=== PATIENT | female | born 1995 | race Hispanic/Latino ===

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

== ENCOUNTER 2017-06-15 15:51 | Emergency (ER) | payer MEDICAID ==
[2017-06-15 15:51] VITALS: BMI 29.3
--- NOTE | 2017-06-15 16:59 | C.PDOC ---
History Of Present Illness Pt c/o painless vaginal bleeding. Time Seen by Provider: 06/15/17 16:21 Chief Complaint (Nursing): Female Genitourinary History Per: Patient Onset/Duration Of Symptoms: Hrs (this morning) Current Symptoms Are (Timing): Still Present Severity: Mild Quality Of Discomfort: denies: "Pain" Additional History Per: Prior Records Abnormal Vaginal Bleeding: Yes Last Menstral Period: 8 weeks Past Medical History Reviewed: Historical Data, Nursing Documentation, Vital Signs Vital Signs: Last Vital Signs Temp 97.4 F L 06/15/17 15:56 Pulse 92 H 06/15/17 15:56 Resp 18 06/15/17 15:56 BP 137/84 06/15/17 15:56 Pulse Ox 100 06/15/17 15:56 - Medical History PMH: No Chronic Diseases Surgical History: - [facility] Procedures LOW CERVICAL (09/04/14) 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 Constitutional: Negative for: Fever Cardiovascular: Negative for: Chest Pain, Light Headedness Respiratory: Negative for: Shortness of Breath Gastrointestinal: Negative for: Abdominal Pain Genitourinary: Positive for: Vaginal Bleeding. Negative for: Dysuria, Pelvic Pain Musculoskeletal: Negative for: Neck Pain, Back Pain Skin: Negative for: Rash Neurological: Negative for: Weakness, Numbness Physical Exam - Physical Exam Appears: Non-toxic, No Acute Distress Skin: Normal Color, Warm, Dry, No Rash Head: Atraumatic, Normacephalic Eye(s): bilateral: Normal Inspection, PERRL, EOMI Neck: Normal ROM, Supple Cardiovascular: Rhythm Regular Respiratory: Normal Breath Sounds, No Accessory Muscle Use Gastrointestinal/Abdominal: Soft, No Tenderness Back: No CVA Tenderness Extremity: Normal ROM Neurological/Psych: Oriented x3, Normal Motor, Normal Sensation ED Course And Treatment O2 Sat by Pulse Oximetry: 100 Pulse Ox Interpretation: Normal - CT Scan/US Limited bedside TA Pelvic US Other Rad Studies (CT/US): U/S Performed By Ar CT/US Interpretation: Live IUP (FHR 150bpm). No FF. Disposition Counseled Patient/Family Regarding: Studies Performed, Diagnosis, Need For Followup - Disposition Disposition: HOME/ ROUTINE Disposition Time: 17:00 Condition: STABLE Additional Instructions: Pelvic rest. Follow up with your Business Intelligence Analyst doctor. Return to the ER if you develop pain, dizziness, heavy bleeding, worsening of symptoms or if you have any other concerns. Instructions: Threatened Miscarriage (ED) - Clinical Impression Clinical Impression: Threatened
[2017-06-15 17:24] VITALS: BP 129/79; PULSE 82; RESP 16; TEMP 98.3; O2SAT 99
== END 2017-06-15 17:20 | disposition home or self-care (01) ==
LOC: C.ER 15:51
DX: O20.0 Threatened abortion (principal); Z3A.08 8 weeks gestation of pregnancy

== ENCOUNTER 2017-07-12 15:14 | Emergency (ER) | payer MEDICAID ==
[2017-07-12 15:29] VITALS: RESP 18
[2017-07-12 16:05] VITALS: BMI 29.7
[2017-07-12] MEDS ORDERED: Dextrose 5%/0.45% NS 1,000 ML IV SCH (16:30)
[2017-07-12] MEDS ORDERED: Acetaminophen 160 mg/5 ml elixir (120 ml) ONE (16:53)
[2017-07-12] MEDS ORDERED: Dextrose 5%/0.45% NS 1,000 ML IV ONE (17:01)
[2017-07-12 17:10] LABS: HCG,QUALITATIVE URINE POSITIVE (NEGATIVE)
--- NOTE | 2017-07-12 17:13 | C.PDOC ---
History Of Present Illness 21 year old female who is 12 weeks presents to the ED for evaluation of headache, nausea, vomit, not tolerating PO. Patient states she ran out of Zofran and is requesting more. Patient denies abdominal pain, vaginal bleeding, urinary symptoms. Time Seen by Provider: 07/12/17 16:05 Chief Complaint (Nursing): Abdominal Pain History Per: Patient History/Exam Limitations: no limitations Onset/Duration Of Symptoms: Days Current Symptoms Are (Timing): Still Present Severity: None Radiation Of Pain To:: None Quality Of Discomfort: "Pain" Associated Symptoms: Nausea, Vomiting Alleviating Factors: None Recent travel outside of the [place]: No Additional History Per: Patient Abnormal Vaginal Bleeding: No Past Medical History Reviewed: Historical Data, Nursing Documentation, Vital Signs Vital Signs: Last Vital Signs Temp 98.2 F 07/12/17 18:55 Pulse 84 07/12/17 18:55 Resp 18 07/12/17 18:55 BP 117/76 07/12/17 18:55 Pulse Ox 100 07/12/17 19:08 - Medical History PMH: No Chronic Diseases Denies: Chronic Kidney Disease Surgical History: - [facility] Procedures LOW CERVICAL (09/04/14) MEDICAL INDUCTION LABOR (09/04/14) Family History: States: Unknown Family Hx - Social History Hx Tobacco Use: No Hx Alcohol Use: No Hx Substance Use: No - Immunization History Hx Tetanus Toxoid Vaccination: No Hx Influenza Vaccination: No Hx Pneumococcal Vaccination: No Review Of Systems Constitutional: Negative for: Fever, Chills Cardiovascular: Negative for: Chest Pain, Palpitations Respiratory: Negative for: Cough, Shortness of Breath Gastrointestinal: Positive for: Nausea, Vomiting Genitourinary: Negative for: Vaginal Discharge, Vaginal Bleeding Musculoskeletal: Negative for: Back Pain Skin: Negative for: Rash Neurological: Positive for: Headache Physical Exam - Physical Exam Appears: Non-toxic, No Acute Distress Skin: Normal Color, Warm, Dry Head: Atraumatic, Normacephalic Eye(s): bilateral: Normal Inspection Nose: No Discharge, No Deformity Oral Mucosa: Moist Neck: Normal ROM, Supple Chest: Symmetrical Cardiovascular: Rhythm Regular, No Murmur Respiratory: Normal Breath Sounds, No Rales, No Rhonchi, No Wheezing Gastrointestinal/Abdominal: Soft, No Tenderness, No Guarding, No Rebound Extremity: Normal ROM Neurological/Psych: Oriented x3, Normal Speech, Normal Cognition Gait: Steady ED Course And Treatment - Laboratory Results Result Diagrams: 07/12/17 17:11 07/12/17 17:11 O2 Sat by Pulse Oximetry: 100 (On RA) Pulse Ox Interpretation: Normal Medical Decision Making Medical Decision Making: Plan: * Labs * IV fluids * Zofran 4 mg PO * UA 7 pm pt tolerating po fluids, will d/c home with macrobid and zofran. f/u ob/ pattern grader Disposition Counseled Patient/Family Regarding: Diagnosis, Need For Followup, Rx Given - Disposition Referrals: [facility] [Outside] Disposition: HOME/ ROUTINE Disposition Time: 19:05 Condition: IMPROVED Additional Instructions: Drink fluids in small amounts at a time. FInd an test and turn up technician as soon as possible for pre- care. Take antibiotics as prescribed Take zofran if needed for severe nausea. . Prescriptions: Nitrofurantoin Macrocrystals [Macrobid] 100 mg PO BID #14 cap Ondansetron ODT [Zofran ODT] 4 mg PO TID #6 odt Instructions: Nausea and Vomiting of (DC) Forms: [facility] (Greek), General Discharge Instructions - Clinical Impression Clinical Impression: Vomiting of , unspecified, UTI (urinary tract infection) - PA / CANE FLUME WATCHMAN / Resident Statement MD/DO has reviewed & agrees with the documentation as recorded. - Scribe Statement The provider has reviewed the documentation as recorded by the Scribe Andry Franz All medical record entries made by the Scribe were at my direction and personally dictated by me. I have reviewed the chart and agree that the record accurately reflects my personal performance of the history, physical exam, medical decision making, and the department course for this patient. I have also personally directed, reviewed, and agree with the discharge instructions and disposition.
[2017-07-12 17:18] LABS: BASO % 0.4 % (0.0-2.0); EOS # 0.1 K/uL (0.0-0.7); EOS % 1.5 % (0.0-4.0); HEMOGLOBIN 12.5 g/dL (11.0-16.0); LYMPH % 23.6 % (20.0-40.0); MEAN CORPUSCULAR HEMOGLOBIN 30.9 pg (27.0-31.0); MEAN CORPUSCULAR HGB CONC 34.7 g/dL (33.0-37.0); MEAN PLATELET VOLUME 9.2 fL (7.2-11.7); MONO # 0.7 K/uL (0.0-0.8); MONO % 8.3 % (0.0-10.0); NEUT # 5.6 K/uL (1.8-7.0); NEUT % 66.2 % (50.0-75.0); RBC 4.06 Mil/uL (3.80-5.20); RED CELL DISTRIBUTION WIDTH 12.7 % (11.5-14.5); WHITE BLOOD COUNT 8.4 K/uL (4.8-10.8)
[2017-07-12 17:18] LABS: SQUAMOUS EPITHIAL 46 /hpf (0-5); URINE BACTERIA MOD (<OCC); URINE BILIRUBIN NEGATIVE (NEGATIVE); URINE BLOOD NEGATIVE (NEGATIVE); URINE CLARITY Hazy (Clear); URINE GLUCOSE (UA) NORMAL (Normal); URINE LEUKOCYTE ESTERASE 3+ Leu/uL (Negative); URINE PROTEIN NEGATIVE (NEGATIVE); URINE UROBILINOGEN NORMAL mg/dL (0.2-1.0)
[2017-07-12 17:20] LABS: URINE COLOR YELLOW (YELLOW)
[2017-07-12 17:30] LABS: ALB/GLOB RATIO 1.3 (1.0-2.1); ALBUMIN 4.2 g/dL (3.5-5.0); ALT/SGPT 48 U/L (9-52); AST/SGOT 26 U/L (14-36); BLOOD UREA NITROGEN 8 mg/dL (7-17); CALCIUM 9.9 mg/dl (8.6-10.4); GFR AFRICAN-AMERICAN > 60; GFR NON-AFRICAN AMERICAN > 60
[2017-07-12 18:56] VITALS: BP 117/76; PULSE 84; TEMP 98.2
[2017-07-12 19:07] VITALS: O2SAT 100
== END 2017-07-12 19:15 | disposition home or self-care (01) ==
LOC: C.ER 15:14
DX: O21.9 Vomiting of pregnancy, unspecified (principal); O23.41 Unspecified infection of urinary tract in pregnancy, first trimester; Z3A.12 12 weeks gestation of pregnancy
CPT/HCPCS: 80053; 81001; 82009; 84703; 85025; 96361; 96374; 99285; J2405; J7042

== ENCOUNTER 2017-11-11 17:54 | Emergency (ER) | payer MEDICAID ==
[2017-11-11 18:22] VITALS: BMI 32.8
[2017-11-11] MEDS ORDERED: Lactated Ringer's 1,000 ML IV ONE (18:46)
--- NOTE | 2017-11-11 19:41 | OBHP ---
Datetime: 11/11/2017 19:28 IP Adm Impression: , intrauterine IP Chief Complaint Other: abdominal pain in preg IP Admit Plan: Observation/Evaluation; Discharge home Admit Comment, IP Provider: 22 yo @ 29.2wks w/ c/o sharp abd pain x5 days aggravated by supi ne position. denies coitus x2mo's. denies srom. good fm pmhx: denies pshx: cdx1 nkda medic: pnv shx: denies tobacco, illicit drug or etoh i: 29.2wks Increased pulse sytolic bp 130's p: ua, cbc, cmp monitor bps Pelvic Type - PN: Adequate Extremities - PN: Normal Abdomen - PN: Normal Lungs - PN: Normal Heart - PN: Normal Neurologic - PN: Normal HEENT - PN: Normal General - PN: Normal FHR - Baseline A Provider: 150 Membranes, Provider: Intact Contraction Comments Provider: irritability Comments, ACOG Physical Exam: SSE: no vag d/c; no blood closed EGA AdmitDate IP: 29.2 Vital Signs Provider: Within Normal Limits IP Chief Complaint: Other NICHD Variability Prov Fetus A: Moderate 6-25bpm NICHD Accel Fetus A IP Provider: 10X10 FHR Category Provider Fetus A: Category I NICHD Decel Fetus A IP Provider: None Dilatation, Provider: 0 Effacement, Provider: 0 Station, Provider: floating Genitourinary Exam: Normal
[2017-11-11 19:54] LABS: BASO % 0.2 % (0.0-2.0); EOS # 0.1 K/uL (0.0-0.7); EOS % 0.4 % (0.0-4.0); HEMOGLOBIN 10.7 g/dL (11.0-16.0); LYMPH # 2.1 K/uL (1.0-4.3); LYMPH % 17.5 % (20.0-40.0); MEAN CORPUSCULAR HEMOGLOBIN 30.6 pg (27.0-31.0); MEAN PLATELET VOLUME 9.5 fL (7.2-11.7); MONO # 0.9 K/uL (0.0-0.8); MONO % 7.4 % (0.0-10.0); NEUT # 8.9 K/uL (1.8-7.0); NEUT % 74.5 % (50.0-75.0); RBC 3.49 Mil/uL (3.80-5.20); RED CELL DISTRIBUTION WIDTH 12.8 % (11.5-14.5)
[2017-11-11 19:57] LABS: SQUAMOUS EPITHIAL 2 /hpf (0-5); URINE BILIRUBIN NEGATIVE (NEGATIVE); URINE BLOOD NEGATIVE (NEGATIVE); URINE CLARITY Clear (Clear); URINE COLOR Yellow (YELLOW); URINE GLUCOSE (UA) NORMAL (Normal); URINE LEUKOCYTE ESTERASE NEG Leu/uL (Negative); URINE PROTEIN NEGATIVE (NEGATIVE)
[2017-11-11 20:06] LABS: ALB/GLOB RATIO 1.3 (1.0-2.1); ALBUMIN 3.6 g/dL (3.5-5.0); ALT/SGPT 40 U/L (9-52); AST/SGOT 16 U/L (14-36); BLOOD UREA NITROGEN 9 mg/dL (7-17); CALCIUM 9.2 mg/dl (8.6-10.4); GFR AFRICAN-AMERICAN > 60; GFR NON-AFRICAN AMERICAN > 60
[2017-11-12 01:17] VITALS: BP 135/78; PULSE 98; RESP 20; TEMP 98; O2SAT 98
== END 2017-11-11 20:50 | disposition home or self-care (01) ==
LOC: C.EROB 17:54
DX: O26.893 Other specified pregnancy related conditions, third trimester (principal); R10.9 Unspecified abdominal pain; Z3A.29 29 weeks gestation of pregnancy
CPT/HCPCS: 80053; 81001; 83615; 85025; 87086; 99283; J7120

== ENCOUNTER 2018-08-26 12:41 | Emergency (ER) | payer MEDICAID, OTHER ==
[2018-08-26 12:50] VITALS: PULSE 75; TEMP 99.6; O2SAT 98; BMI 34.1
--- NOTE | 2018-08-26 13:19 | C.PDOC ---
History Of Present Illness 23 y/o female presents to the ED complaining of a sore throat and earache for the past 2 days. Associated with a subjective fever and body aches. Patient has not tried any OTC medication. Denies any nausea, vomiting, diarrhea, coughing, or SOB. Time Seen by Provider: 08/26/18 12:50 Chief Complaint (Nursing): ENT Problem History Per: Patient History/Exam Limitations: None Onset/Duration Of Symptoms: Days (x 3) Current Symptoms Are (Timing): Still Present Past Medical History Reviewed: Historical Data, Nursing Documentation, Vital Signs Vital Signs: Last Vital Signs Temp 99.6 F 08/26/18 12:47 Pulse 75 08/26/18 12:47 Resp 107 H 08/26/18 12:47 BP Pulse Ox 98 08/26/18 12:47 - Medical History PMH: Denies: Depression, Diabetes, HTN, Chronic Kidney Disease Surgical History: - [facility] Procedures LOW CERVICAL (09/04/14) MEDICAL INDUCTION LABOR (09/04/14) MONITORING OF POC, CARDIAC RATE, BENEFITS DIRECTOR APPROACH (12/01/17) Family History: States: Unknown Family Hx - Social History Hx Tobacco Use: No Hx Alcohol Use: No Hx Substance Use: No - Immunization History Hx Tetanus Toxoid Vaccination: No Hx Influenza Vaccination: No Hx Pneumococcal Vaccination: No Review Of Systems Constitutional: Positive for: Fever, Other (Body aches) ENT: Positive for: Ear Pain, Throat Pain Cardiovascular: Negative for: Chest Pain Respiratory: Negative for: Cough, Shortness of Breath Gastrointestinal: Negative for: Nausea, Vomiting, Diarrhea Neurological: Negative for: Weakness, Headache Physical Exam - Physical Exam Appears: Non-toxic, No Acute Distress Skin: Warm, Dry, No Rash Head: Atraumatic, Normacephalic Eye(s): bilateral: Normal Inspection, PERRL, EOMI Ear(s): Bilateral: Normal Nose: Normal, No Flaring Oral Mucosa: Moist Throat: Erythema (Tonsils erythematous), No Exudate Neck: Decreased ROM, No Midline Cervical Tenderness, Supple Lymphatic: Adenopathy (+ B/L cervical lymphadenopathy) Chest: Symmetrical Cardiovascular: Rhythm Regular, No Friction Rub, No Murmur Respiratory: Normal Breath Sounds, No Rales, No Rhonchi, No Stridor, No Wheezing Gastrointestinal/Abdominal: Bowel Sounds (active), Soft, No Tenderness Back: Normal Inspection, No CVA Tenderness, No Vertebral Tenderness Extremity: Normal ROM, No Tenderness, No Swelling Extremity: Bilateral: Atraumatic, Normal Color And Temperature Neurological/Psych: Oriented x3, Normal Speech, Normal Motor Gait: Steady ED Course And Treatment O2 Sat by Pulse Oximetry: 98 (RA) Pulse Ox Interpretation: Normal Medical Decision Making Medical Decision Making: Plan: Patient will be discharged home with Rx for PO Amoxicillin. Initial dose given in the ER. Advised patient to complete course of antibiotics and follow up with PMD. Disposition - Disposition Referrals: Siddharth Paul MD [Staff Provider] - Disposition: HOME/ ROUTINE Disposition Time: 13:41 Condition: GOOD Additional Instructions: Follow up with the medical doctor within 1-2 days. Return if worsened. Prescriptions: Amoxicillin [Amoxil 500 mg Cap] 500 mg PO TID #29 cap Ibuprofen [Motrin] 1 tab PO TID PRN #30 tab PRN Reason: Pain Instructions: Sore Throat, Adult (DC) Forms: [facility] (Icelandic), Work Excuse - Clinical Impression Clinical Impression: Pharyngitis - PA / PSYCHIATRIC NURSE PRACTITIONER / Resident Statement MD/DO has reviewed & agrees with the documentation as recorded. - Scribe Statement The provider has reviewed the documentation as recorded by the Tere Strong All medical record entries made by the Tere were at my direction and personally dictated by me. I have reviewed the chart and agree that the record accurately reflects my personal performance of the history, physical exam, medical decision making, and the department course for this patient. I have also personally directed, reviewed, and agree with the discharge instructions and disposition.
[2018-08-26 13:48] VITALS: RESP 18
== END 2018-08-26 13:48 | disposition home or self-care (01) ==
LOC: C.ER 12:41
DX: J02.9 Acute pharyngitis, unspecified (principal)

== ENCOUNTER 2018-08-28 12:07 | Emergency (ER) | payer MEDICAID ==
[2018-08-28 12:07] VITALS: BMI 32.8
[2018-08-28 12:14] VITALS: BP 137/82; PULSE 102; RESP 20; TEMP 97.9; O2SAT 98
--- NOTE | 2018-08-28 12:47 | C.PDOC ---
History Of Present Illness 23 year old female presents to the emergency department with complaints of bloody sputum. Patient reports that she has been sick for a few days, and was last evaluated at [facility] for a throat infection two days ago and given Amoxicillin at the time. Patient states that since then she has lost her voice, and when trying to clean her nose this morning, she spit bloody sputum. Contrary to triage, patient denies coughing. Time Seen by Provider: 08/28/18 12:29 Chief Complaint (Nursing): Cough, Cold, Congestion History Per: Patient History/Exam Limitations: no limitations Onset/Duration Of Symptoms: Days (2) Current Symptoms Are (Timing): Still Present Location Of Pain: Throat Associated Symptoms: Sore Throat, Sputum. denies: Fever, Chills, Cough Past Medical History Reviewed: Historical Data, Nursing Documentation, Vital Signs Vital Signs: Last Vital Signs Temp 97.9 F 08/28/18 12:11 Pulse 102 H 08/28/18 12:11 Resp 20 08/28/18 12:11 BP 137/82 08/28/18 12:11 Pulse Ox 98 08/28/18 12:11 - Medical History PMH: No Chronic Diseases Denies: Depression, Diabetes, HTN, Chronic Kidney Disease Surgical History: - [facility] Procedures LOW CERVICAL (09/04/14) MEDICAL INDUCTION LABOR (09/04/14) MONITORING OF POC, CARDIAC RATE, ROLL CLEANER APPROACH (12/01/17) Family History: States: No Known Family Hx - Social History Hx Tobacco Use: No Hx Alcohol Use: No Hx Substance Use: No - Immunization History Hx Tetanus Toxoid Vaccination: No Hx Influenza Vaccination: No Hx Pneumococcal Vaccination: No Review Of Systems Except As Marked, All Systems Reviewed And Found Negative. Constitutional: Negative for: Fever, Chills ENT: Positive for: Throat Pain Cardiovascular: Negative for: Chest Pain Respiratory: Positive for: Sputum (bloody). Negative for: Cough Physical Exam - Physical Exam Appears: Non-toxic, No Acute Distress Skin: Normal Color, Warm, Dry Head: Atraumatic, Normacephalic Eye(s): bilateral: Normal Inspection, PERRL, EOMI Nose: Normal, No Epistaxis Oral Mucosa: Moist, No Other (bleeding) Tongue: No Bleeding Gingiva: No Bleeding Throat: Normal, No Erythema, No Exudate Neck: Normal, Supple Chest: Symmetrical, No Tenderness Cardiovascular: Rhythm Regular, No Murmur Respiratory: Normal Breath Sounds, No Rales, No Rhonchi, No Wheezing Neurological/Psych: Oriented x3, Normal Speech, Normal Cognition ED Course And Treatment O2 Sat by Pulse Oximetry: 98 (RA) Pulse Ox Interpretation: Normal Progress Note: Patient re-assured and discharged home. Disposition - Disposition Referrals: Siddharth Paul MD [Staff Provider] - Disposition: HOME/ ROUTINE Disposition Time: 12:44 Condition: STABLE Additional Instructions: Follow up with PMD and ENT within 1-2 days. Return to ED if feel worse. Prescriptions: Fluticasone Nasal [Flonase] 1 spr NS BID #1 spr Instructions: Nosebleeds (DC), Laryngitis (DC) Forms: [facility] (Kinyarwanda), Work Excuse - Clinical Impression Clinical Impression: Laryngitis, Mild epistaxis - PA / GREEN ENERGY MARKETING ANALYST / Resident Statement MD/DO has reviewed & agrees with the documentation as recorded. - Scribe Statement The provider has reviewed the documentation as recorded by the Scribe (Maurice Vásquez) All medical record entries made by the Scribe were at my direction and personally dictated by me. I have reviewed the chart and agree that the record accurately reflects my personal performance of the history, physical exam, medical decision making, and the department course for this patient. I have also personally directed, reviewed, and agree with the discharge instructions and disposition.
== END 2018-08-28 12:53 | disposition home or self-care (01) ==
LOC: C.ER 12:07
DX: J04.0 Acute laryngitis (principal); R04.0 Epistaxis